=== PATIENT | female | born 1975 | race Caucasian/White ===

== ENCOUNTER → 2018-03-12 12:33 | Outpatient (CLI) | payer OTHER, SELFPAY ==
--- NOTE | 2018-03-12 | DI.MG.S_ITS ---
PROCEDURE: MM SCREENING MAMMO BI COMPARISON: [facility], , BREAST UNILATERAL LIMITED, 12/19/2015, 14:03. [facility], , BILATERAL SCREENING MAMMOGRAM, 12/31/2016, 10:38. INDICATIONS: ROUTINE MAMMO FINDINGS: IMPRESSION: Dictated by: Faustino De Souza M.D. on 03/12/2018 at 21:09 Approved by: Faustino De Souza M.D. on 03/12/2018 at 21:16
--- NOTE | 2018-03-12 21:16 | DI.MG.S_ITS ---
Patient Name: GET BRICEÑO date: 1975 Sex: F Attending Physician: Claritza Indications: Date: 03/12/2018 12:51 At the request of: MARIO ARDON Procedure: MM screening mammo BI BILATERAL DIGITAL SCREENING MAMMOGRAM 3D/2D WITH CAD: 03/12/2018 CLINICAL: Routine screening. Family history of breast cancer. Comparison is made to exams dated: 12/31/2016 mammogram, 12/19/2015 mammogram, 2015 mammogram, 12/28/2015 ultrasound biopsy, and 12/19/2015 [facility]. The tissue of both breasts is extremely dense, which lowers the sensitivity of mammography. Current study was also evaluated with a Computer Aided Detection (CAD) system. 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 There is an asymmetry in the left breast posterior depth inferior region seen on the mediolateral oblique view only. No other significant masses or calcifications are seen in either breast. IMPRESSION: INCOMPLETE: NEEDS ADDITIONAL IMAGING EVALUATION The asymmetry in the left breast posterior depth inferior region seen on the mediolateral oblique view only is indeterminate. Additional views with possible ultrasound are recommended. This exam was interpreted at Station ID: [id number]. NOTE: For mammograms, a report in lay terms will be sent to the patient. Approximately 15% of breast malignancies will not be visualized mammographically. In the management of a palpable breast mass, a negative mammogram must not discourage biopsy of a clinically suspicious lesion. Electronically Signed By: Faustino De Souza M.D. ecl/:03/12/2018 21:16:27 Continued Report - Page 2 of 2 Patient Name: GET BRICEÑO date: 1975 Sex: F Attending Physician: Claritza Indications: Date: 03/12/2018 12:51 At the request of: MARIO ARDON Procedure: MM screening mammo BI copy to: Janet Lainez letter sent: Additional Imaging Needed ACR BI-RADS Category 0: Incomplete [id number]
== END ==
PROVIDERS: PCP Registered Nurse; Visit Provider Registered Nurse
DX: Z12.31 Encounter for screening mammogram for malignant neoplasm of breast (principal); Z80.3 Family history of malignant neoplasm of breast
CPT/HCPCS: 77063; 77067

== ENCOUNTER → 2018-03-24 13:48 | Outpatient (CLI) | payer OTHER, SELFPAY ==
--- NOTE | 2018-03-24 13:51 | DI.MG.S_ITS ---
UNILATERAL LEFT DIGITAL DIAGNOSTIC MAMMOGRAM 3D/2D WITH ADDITIONAL VIEWS: 03/24/2018 CLINICAL: Additional evaluation requested from prior study. Comparison is made to exams dated: 03/12/2018 mammogram, 12/31/2016 mammogram, and 12/19/2015 mammogram - [facility]. The tissue of the left breast is extremely dense, which lowers the sensitivity of mammography. Prior mammographic finding is no longer seen in the left breast. No significant masses, calcifications, or other findings are seen in the breast. IMPRESSION: INCOMPLETE: NEEDS ADDITIONAL IMAGING EVALUATION Questioned left breast finding resolves on further imaging. Recommend confirmation with ultrasound. This exam was interpreted at Station ID: [id number]. NOTE: For mammograms, a report in lay terms will be sent to the patient. Approximately 15% of breast malignancies will not be visualized mammographically. In the management of a palpable breast mass, a negative mammogram must not discourage biopsy of a clinically suspicious lesion. Electronically Signed By: Mario Gustafson M.D. cj/:03/24/2018 15:58:14 copy to: MARIO ARDON ACR BI-RADS Category 0: Incomplete [id number]
--- NOTE | 2018-03-24 13:51 | DI.US.S_ITS ---
ULTRASOUND OF LEFT BREAST: 03/24/2018 CLINICAL: Patient returns for additional imaging over a suspected mass in the left breast. Comparison is made to exams dated: 03/24/2018 mammogram, 03/12/2018 mammogram, and 12/31/2016 mammogram - [facility]. Color flow ultrasound of the left breast was performed. Mclean scale images of the real-time examination were reviewed. Prior mammographic finding is no longer seen left breast. IMPRESSION: NEGATIVE There is no sonographic evidence of malignancy. A 1 year screening mammogram is recommended. This exam was interpreted at Station ID: [id number]. Electronically Signed By: Mario [email or web address]:03/24/2018 16:34:13 copy to: MARIO ARDON letter sent: Normal Exam Ultrasound BI-RADS: 1 Negative
== END ==
PROVIDERS: PCP Registered Nurse; Visit Provider Obstetrics & Gynecology
DX: R92.8 Other abnormal and inconclusive findings on diagnostic imaging of breast (principal)
CPT/HCPCS: 76642; 77065; G0279

== ENCOUNTER → 2018-06-08 13:55 | Outpatient (CLI) | payer OTHER, SELFPAY ==
[2018-06-08 15:59] LABS: Free T4, Direct Thyroxine 0.66 ng/dL (0.78-2.19)
[2018-06-08 16:12] LABS: Thyroid Stimulating Hormone 2.41 uIU/mL (0.47-4.68)
[2018-06-11 16:16] LABS: Thyroid Peroxidase Antibodies < 1 IU/mL (< 9)
== END ==
PROVIDERS: Family Provider Registered Nurse; PCP Registered Nurse; Visit Provider Internal Medicine Endocrinology, Diabetes & Metabolism
DX: E03.9 Hypothyroidism, unspecified (principal); E22.1 Hyperprolactinemia
CPT/HCPCS: 36415; 84146; 84439; 84443; 86376

== ENCOUNTER → 2019-03-29 10:03 | Outpatient (CLI) | payer OTHER, SELFPAY ==
--- NOTE | 2019-03-29 | DI.RAD.S_ITS ---
PROCEDURE: XR LUMBAR SPINE 2-3V INDICATIONS: Left lower back pain TECHNIQUE: 3 views of the lumbar spine were acquired. COMPARISON: None. FINDINGS: Bones: 5 [id number]-[id number] vertebrae are present. There is normal bony alignment. No vertebral body compression fractures. No suspicious bony lesions. There is mild to moderate facet arthropathy, worst at the L4-L5 and L5-S1 levels. Soft tissues: Overlying bowel gas pattern is nonobstructive. No suspicious soft tissue calcifications. IMPRESSION: Mild to moderate facet arthropathy, worst at the L4-L5 and L5-S1 levels. Dictated by: Faustino De Souza M.D. on 03/29/2019 at 15:09 Approved by: Faustino De Souza M.D. on 03/29/2019 at 15:11
== END ==
PROVIDERS: PCP Registered Nurse; Visit Provider Chiropractor
DX: M47.816 Spondylosis without myelopathy or radiculopathy, lumbar region (principal); M47.817 Spondylosis without myelopathy or radiculopathy, lumbosacral region; M54.5 Low back pain
CPT/HCPCS: 72100

== ENCOUNTER → 2020-07-17 16:55 | Outpatient (CLI) | payer OTHER, SELFPAY ==
[2020-07-17 17:18] LABS: COVID19 -Nasal RAPID Negative (Negative)
== END ==
PROVIDERS: PCP Registered Nurse; Visit Provider Physician Assistant
DX: Z11.59 Encounter for screening for other viral diseases (principal)
CPT/HCPCS: 87635

== ENCOUNTER → 2020-07-19 13:37 | Outpatient (CLI) | payer OTHER, SELFPAY ==
--- NOTE | 2020-07-19 | DI.MG.S_ITS ---
BILATERAL DIGITAL SCREENING MAMMOGRAM 3D/2D WITH CAD: 07/19/2020 CLINICAL: Routine screening. Family history of breast cancer. Comparison is made to exams dated: 03/12/2018 mammogram, 12/31/2016 mammogram, and 12/19/2015 mammogram - [facility]. The tissue of both breasts is extremely dense, which lowers the sensitivity of mammography. Current study was also evaluated with a Computer Aided Detection (CAD) system. No significant masses, calcifications, or other findings are seen in either breast. There has been no significant interval change. IMPRESSION: NEGATIVE There is no mammographic evidence of malignancy. A 1 year screening mammogram is recommended. This exam was interpreted at Station ID: [id number]. NOTE: For mammograms, a report in lay terms will be sent to the patient. Approximately 15% of breast malignancies will not be visualized mammographically. In the management of a palpable breast mass, a negative mammogram must not discourage biopsy of a clinically suspicious lesion. Electronically Signed By: Moraima kan/alfredo:07/25/2020 13:34:36 copy to: MARIO ARDON letter sent: Normal Exam ACR BI-RADS Category 1: Negative [id number]
== END ==
PROVIDERS: PCP Registered Nurse; Referring Provider Obstetrics & Gynecology; Visit Provider Obstetrics & Gynecology
DX: Z12.31 Encounter for screening mammogram for malignant neoplasm of breast (principal); Z80.3 Family history of malignant neoplasm of breast
CPT/HCPCS: 77063; 77067

== ENCOUNTER → 2021-01-03 13:30 | Outpatient (CLI) | payer OTHER, SELFPAY ==
[2021-01-03 13:48] LABS: Add Manual Diff / Slide Review NO; Basophils Absolute Auto 100 /uL (0-100); Basophils Percent Auto 1.3 % (0-2); Eosinophils Absolute Auto 200 /uL (0-450); Eosinophils Percent Auto 3.5 % (2-4); Hematocrit 37.1 % (36-46); Hemoglobin 12.8 g/dL (12.0-16.0); Lymphocytes Absolute Auto 1700 /uL (1100-4500); Lymphocytes Percent Auto 27.1 % (25-40); Mean Corpuscular HGB Conc 34.4 % (30-36); Mean Corpuscular Hemoglobin 32.1 PG (26-34); Mean Corpuscular Volume 93.3 fL (80-100); Monocytes Absolute Auto 400 /uL (0-900); Monocytes Percent Auto 6.1 % (3-14); Neutrophils Absolute Auto 3800 /uL (1500-7000); Platelet Count 222 X10^3/uL (150-400); Red Blood Cell Count 3.98 X10^6/uL (4.0-5.2); Red Cell Distribution Width 13.4 % (11.6-14.8); White Blood Cell Count 6.1 X10^3/uL (4.5-11.0)
[2021-01-03 13:52] LABS: Appearance Urine UA CLEAR; Bilirubin Urine UA NEGATIVE (NEGATIVE); Color Urine UA YELLOW; Glucose Urine UA NEGATIVE (Negative); Ketones Urine UA NEGATIVE (NEGATIVE); Leukocyte Esterase Urine UA NEGATIVE (NEGATIVE); Nitrite Urine UA NEGATIVE (Negative); Occult Blood Urine UA 1+ (Negative); Protein Urine UA NEGATIVE (Negative); Specific Gravity Urine UA >=1.030 (1.000-1.035); Urobilinogen Urine UA 0.2 E.U./dL (0.2)
[2021-01-03 14:07] LABS: Alanine Aminotransferase 15 IU/L (<35); Albumin 4.4 g/dL (3.5-5.0); Albumin Globulin Ratio 1.5 (1.0-2.8); Alkaline Phosphatase 55 U/L (38-126); Aspartate Aminotransferase 30 IU/L (14-36); BUN Creatinine Ratio 23.6 (6-22); Bilirubin Total 0.4 mg/dL (0.2-1.3); Blood Urea Nitrogen 17 mg/dL (7-17); Calcium 9.3 mg/dL (8.4-10.2); Carbon Dioxide 26 mmol/L (22-32); Chloride 105 mmol/L (98-107); Estimated Glomerular Filt Rate > 60.0 mL/min (>60); Globulin 2.9 g/dL (1.7-4.1); Glucose 92 mg/dL (70-100); HEMOLYSIS < 15 (0-50); Sodium 139 mmol/L (137-145); Total Protein 7.3 g/dL (6.3-8.2)
[2021-01-03 14:11] LABS: WBC Urine None Seen (0-5/HPF)
[2021-01-03 15:10] LABS: RBC Urine 0-1/HPF (0-5/HPF); Squamous Epithelial Cell Urine 1-5 /HPF (0-5/HPF)
[2021-01-03 15:11] LABS: Bacteria Urine Moderate (10-30); Mucus Urine 2+ (Negative)
[2021-01-03 15:12] LABS: Culture Indicated Urine Cult Not Indicated
[2021-01-03 15:51] LABS: TSH w/ Reflex to FT4 2.63 uIU/mL (0.47-4.68)
== END ==
PROVIDERS: PCP Family Medicine; Referring Provider Family Medicine; Visit Provider Family Medicine
DX: D35.2 Benign neoplasm of pituitary gland (principal); S39.012A Strain of muscle, fascia and tendon of lower back, initial encounter
CPT/HCPCS: 36415; 80053; 81003; 81015; 84443; 85025

== ENCOUNTER → 2021-02-05 16:34 | Outpatient (CLI) | payer OTHER, SELFPAY ==
[2021-02-05 18:19] LABS: Cholesterol 174 mg/dL (140-199); HDL Cholesterol 66 mg/dL (40-60); LDL Cholesterol Calculated 101 mg/dL (<100); Triglycerides 34 mg/dL (35-150)
== END ==
PROVIDERS: Family Provider Family Medicine; PCP Family Medicine; Referring Provider Family Medicine; Visit Provider Family Medicine
DX: Z83.438 Family history of other disorder of lipoprotein metabolism and other lipidemia (principal)
CPT/HCPCS: 36415; 80061

== ENCOUNTER → 2021-02-23 15:06 | Outpatient (CLI) | payer OTHER, SELFPAY ==
[2021-02-23 15:38] LABS: Bilirubin Urine UA NEGATIVE (NEGATIVE); Color Urine UA YELLOW; Glucose Urine UA NEGATIVE (Negative); Ketones Urine UA NEGATIVE (NEGATIVE); Leukocyte Esterase Urine UA TRACE (NEGATIVE); Nitrite Urine UA NEGATIVE (Negative); Occult Blood Urine UA 3+ (Negative); Protein Urine UA TRACE (Negative); Specific Gravity Urine UA 1.025 (1.000-1.035); Urobilinogen Urine UA 0.2 E.U./dL (0.2)
[2021-02-23 15:50] LABS: Appearance Urine UA Slightly Cloudy
[2021-02-23 15:59] LABS: Amorphous Sediment Urine 1+; Bacteria Urine Few (2-10); Culture Indicated Urine Specimen Cultured; Mucus Urine 2+ (Negative); RBC Urine 1-5/HPF (0-5/HPF); Squamous Epithelial Cell Urine 1-5 /HPF (0-5/HPF); WBC Urine 5-10/HPF (0-5/HPF)
== END ==
PROVIDERS: Family Provider Family Medicine; PCP Family Medicine; Referring Provider Family Medicine; Visit Provider Family Medicine
DX: N39.0 Urinary tract infection, site not specified (principal)
CPT/HCPCS: 81001; 87086

== ENCOUNTER 2021-03-02 08:15 | Outpatient (RCR) | payer OTHER, SELFPAY ==
--- NOTE | 2021-01-18 16:41 | PT.OIE ---
Current Diagnoses Strain of muscle, fascia and tendon of lower back, initial encounter (01/18/21) Past Medical History (Last Updated 01/02/21 @ 16:24 by Jose Padilla DO) Endometrial polyp Exposure to COVID-19 virus Infertility Low back strain Otitis externa URI (upper respiratory infection) Past Surgical History Status post delivery (01/05/07) Visit Care Team Role Provider Type Jose Padilla DO Attending Provider Physician Family Provider Primary Care Provider Referring Provider Specialty: Family Practice Address: [address] [place] [address], [facility] Email: [email or web address] Initial Evaluation PT-OP-A Visit Information Start: 01/18/21 11:57 Freq: Status: Active Protocol: Document 01/18/21 11:58 HH (Rec: 01/18/21 12:54 [email or web address]) Out-Patient Physical Therapy Visit Information Visit Information Visit Type Initial Evaluation Visit Start Time 08:15 Visit Stop Time 09:00 Total Visit Minutes 45 Visit Number 1/60 Number of AUTOMOTIVE ASSEMBLER Visits 0 Evaluation Information Evaluation Date 01/18/21 PT-OP-B Current Condition Start: 01/18/21 11:57 Freq: Status: Active Protocol: Document 01/18/21 11:58 HH (Rec: 01/18/21 12:54 [email or web address]) Current Condition History of Current Condition Onset Date 2016 Current Complaints chronic L LBP History of Current Condition Dejah is a 45yo healthy and active female here for her L sided LBP since 2015. She stated she somehow twisted her back when she was extending her back and reaching up with her L arm while doing Mammogram. She also fainted at the site and she then has been having LBP since. She stated she has been doing hip flexor stretches which it helps to manage her pain. She tends to feel her pain by laying in prone, supine with legs extended and with stiffness in the morning. 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 Prior Treatments and Tests Pt was told by her chiropractor 3 years ago that she has a 60 degrees curvature at her lumbosacral area Her 2019 x-ray shows ' There is mild to moderate facet arthropathy, worst at the L4-L5 and L5-S1 levels. PT-OP-C Subjective Start: 01/18/21 11:57 Freq: Status: Active Protocol: Document 01/18/21 14:00 HH (Rec: 01/18/21 14:25 [email or web address]) Patient Questionnaires Oswestry Low Back Index Oswestry Score 10 Oswestry Impairment 1 to 19% Impaired (Score 1-19) OP-PT Pain Assessment Location LBP Pain Location Details L parapspinals Intensity 5 Scale Used Numeric (0 - 10) Description Aching,Dull Frequency Frequent Pain Aggravating Factors Position,Changing Position, Activity,Exercise Pain Alleviating Factors Inactivity,Position,Sitting PT-OP-F Manual Assessment Start: 01/18/21 11:57 Freq: Status: Active Protocol: Document 01/18/21 14:00 HH (Rec: 01/18/21 14:25 [email or web address]) Manual Assessments Soft Tissue Assessment Soft Tissue Mobility Assessment hypertoncity at L lumbar paraspinals (distal at L5-S1 region > proximal) hypertonicity at L SIJ region and gluteal med and zachary tendon. PT-OP-H Neuro Start: 01/18/21 11:57 Freq: Status: Active Protocol: Document 01/18/21 14:00 HH (Rec: 01/18/21 14:25 [email or web address]) Deep Tendon Reflex & Clonus Assessment Deep Tendon Reflex Bilateral Achilles Deep Tendon Reflex 2+ Normal Bilateral Patellar Deep Tendon Reflex 2+ Normal PT-OP-J Posture/Palpation/Skin Start: 01/18/21 11:57 Freq: Status: Active Protocol: Document 01/18/21 14:00 HH (Rec: 01/18/21 14:25 [email or web address]) Palpation Assessment Location L parapsinal Palpation Location lumbar parapsinals L, QL Palpation Findings Tenderness,Trigger Point Palpation Details muscle hypertrophy noted on L PT-OP-K Range of Motion Start: 01/18/21 11:57 Freq: Status: Active Protocol: Document 01/18/21 14:00 HH (Rec: 01/18/21 14:25 [email or web address]) Lumbar Spine Range of Motion Lumbar Spine Active Degrees Comments toe touch= hands on floor, L hip hike with L paraspinals hypertrophy, mild L scoliosis noted. SB to R= 23inches from floor, tightness noted at L lumbar region SB to L = 21 inches from floor , pressure pain on L lumbar region extension= shoulder over heels , pressure pain on lumbar region, angulation noted at L3 level Hip Goniometric Range of Motion Hip Right Active Hip ROM WFL Yes Straight Leg Raise 92 Comments hip ROM = WFL Left Active Hip ROM WFL Yes Testing Position Supine Straight Leg Raise 98 Comments hip ROM = WFL PT-OP-L Special Tests Start: 01/18/21 11:57 Freq: Status: Active Protocol: Document 01/18/21 14:00 (Rec: 01/18/21 14:25 [email or web address]) Special Tests Lumbar Spine Special Tests A-P Shearing Test Results -ve Slump Test Results -ve Straight Leg Raise Test Results -ve Prone Instability Test Test Results +VE B Comments pt reports pain reduced with hip extension PT-OP-M Strength Start: 01/18/21 11:57 Freq: Status: Active Protocol: Document 01/18/21 14:00 (Rec: 01/18/21 14:25 [email or web address]) Trunk Strength Trunk Manual Muscle Testing Testing Position Prone Core Stabilization flexion endurance test= >60 seconds Hip Strength Hip Manual Muscle Testing Right Flexion (L2) 5 Normal Extension (S1) 5 Normal Abduction 5 Normal Adduction 5 Normal Left Flexion (L2) 4+ Good+ Extension (S1) 4+ Good+ Abduction 4+ Good+ Adduction 4+ Good+ Knee Strength Knee Manual Muscle Testing Right Flexion (S2) 5 Normal Extension (L3) 5 Normal Left Flexion (S2) 5 Normal Extension (L3) 5 Normal PT-OP-T Assessment and Plan Start: 01/18/21 11:57 Freq: Status: Active Protocol: Document 01/18/21 14:00 (Rec: 01/18/21 14:25 [email or web address]) Physical Therapy Assessment Rehab Potential Rehabilitation Potential Excellent Evaluation Complexity Number of Personal Factors/Comorbidities 0 Number of Body Systems Impaired 1-2 Clinical Presentation at Evaluation Stable Impairments Impairments Activity Tolerance,Balance, Functional Activities, Functional Mobility,Gait,Pain, Posture,ROM,Soft Tissue Mobility,Strength,Transfers Goals hep Impairment pt does not have HEP Short Term Goal (STG) pt will be compliant to HEP and able to complete them safely and correctly STG Duration 4 weeks activity tolerance Impairment pt is scared to run d/t back pain Short Term Goal (STG) pt will be able to run 1-3 miles per week without increase in back pain STG Duration 4 weeks Senior Living Goal (LTG) pt will be able to run 3-5 miles per week without back discomfort. LTG Duration 8 weeks Pain Impairment pt reports of pain while standing/ lying in supine/ prone Short Term Goal (STG) pt will have pain no more than 4/10 while standing or in prone position STG Duration 4 weeks Senior Living Goal (LTG) pt will have pain no more than 2/10 while doing her planks and push ups LTG Duration 8 weeks Assessment Summary Assessment Dejah is a 45yo active and healthy female here for her chronic L sided LBP. Pt reports she injured her back from lumbar extension with rotation in 2016. Upon assessment, pt presents possible lumbar strain. She has significant hypertrophy and tightness at L QL and paraspinals which is possibly d/t her poor lumbar stabilizers and her mild scoliosis. This creates excessive mechanical stress on her lumbar spine while laying in prone and any trunk extension exercises. Her exercises mechanics and hip flexor flexiblity and trunk extension strength/ endurance will be assessed next visit. Pt will benefit from skilled therapy to improve her overall trunk extension stability and strength of L hip stabilizers in order for her to continue doing her workout routine in pain free. Physical Therapy Plan Frequency and Duration Frequency of Treatment 1x/Week Duration of Treatment 8 weeks Plan of Care Start Date 01/18/21 Plan of Care End Date 03/19/21 Therapeutic Interventions Therapeutic Interventions Aquatic Therapy,Balance Training,Gait Training,Home Exercise Program,Joint Mobilizations,Manual Therapy, Neuromuscular Re-education, Patient/Caregiver Education, Self-Care/Home Management,Soft Tissue Mobilization,Taping, Therapeutic Activities, Therapeutic Exercises Modalities Biofeedback,Cold Pack/Ice Massage,Electric Stimulation, Hot Packs,Traction- Mechanical ,Ultrasound Next Visit Focus/Plan Next Note Type Treatment Note Next Visit Plan check plank extension endurance test sTM on L QL, glute med, glute max
--- NOTE | 2021-01-18 16:41 | PT.OPPOC ---
Physical, Occupational & Speech Therapy At [facility] Current Diagnoses Strain of muscle, fascia and tendon of lower back, initial encounter (01/18/21) Visit Care Team Role Provider Type Jose Padilla DO Attending Provider Physician Family Provider Primary Care Provider Referring Provider Specialty: Family Practice Address: [address] [place] [address], [facility] Email: [email or web address] Of Care PT-OP-T Assessment and Plan Start: 01/18/21 11:57 Freq: Status: Active Protocol: Document 01/18/21 14:00 (Rec: 01/18/21 14:25 HH [email or web address]) Physical Therapy Assessment Rehab Potential Rehabilitation Potential Excellent Evaluation Complexity Number of Personal Factors/Comorbidities 0 Number of Body Systems Impaired 1-2 Clinical Presentation at Evaluation Stable Impairments Impairments Activity Tolerance,Balance, Functional Activities, Functional Mobility,Gait,Pain, Posture,ROM,Soft Tissue Mobility,Strength,Transfers Goals hep Impairment pt does not have HEP Short Term Goal (STG) pt will be compliant to HEP and able to complete them safely and correctly STG Duration 4 weeks activity tolerance Impairment pt is scared to run d/t back pain Short Term Goal (STG) pt will be able to run 1-3 miles per week without increase in back pain STG Duration 4 weeks Maintenance Service Dispatcher Goal (LTG) pt will be able to run 3-5 miles per week without back discomfort. LTG Duration 8 weeks Pain Impairment pt reports of pain while standing/ lying in supine/ prone Short Term Goal (STG) pt will have pain no more than 4/10 while standing or in prone position STG Duration 4 weeks Intermediate Goal (LTG) pt will have pain no more than 2/10 while doing her planks and push ups LTG Duration 8 weeks Assessment Summary Assessment Dejah is a 45yo active and healthy female here for her chronic L sided LBP. Pt reports she injured her back from lumbar extension with rotation in 2016. Upon assessment, pt presents possible lumbar strain. She has significant hypertrophy and tightness at L QL and paraspinals which is possibly d/t her poor lumbar stabilizers and her mild scoliosis. This creates excessive mechanical stress on her lumbar spine while laying in prone and any trunk extension exercises. Her exercises mechanics and hip flexor flexiblity and trunk extension strength/ endurance will be assessed next visit. Pt will benefit from skilled therapy to improve her overall trunk extension stability and strength of L hip stabilizers in order for her to continue doing her workout routine in pain free. Physical Therapy Plan Frequency and Duration Frequency of Treatment 1x/Week Duration of Treatment 8 weeks Plan of Care Start Date 01/18/21 Plan of Care End Date 03/19/21 Therapeutic Interventions Therapeutic Interventions Aquatic Therapy,Balance Training,Gait Training,Home Exercise Program,Joint Mobilizations,Manual Therapy, Neuromuscular Re-education, Patient/Caregiver Education, Self-Care/Home Management,Soft Tissue Mobilization,Taping, Therapeutic Activities, Therapeutic Exercises Modalities Biofeedback,Cold Pack/Ice Massage,Electric Stimulation, Hot Packs,Traction- Mechanical ,Ultrasound Next Visit Focus/Plan Next Note Type Treatment Note Next Visit Plan check plank extension endurance test sTM on L QL, glute med, glute max Plan of Care Dates Plan of Care Start Date 01/18/21 Plan of Care End Date 03/19/21 Electronically Signed by: Aleshia Oseguera, PT 01/18/21 [id number] Please Sign and Return: I have reviewed this Plan of Care and certify that the skilled therapy services above are required to meet the patient?s needs. Physician Signature Date Printed Name and Credentials Clinical Instructor Signature Printed Name and Credentials
--- NOTE | 2021-01-19 09:10 | PT.OTN ---
Current Diagnoses Strain of muscle, fascia and tendon of lower back, initial encounter (01/19/21) Physical Therapy Treatment Note PT-OP-A Visit Information Start: 01/18/21 11:57 Freq: Status: Active Protocol: Document 01/19/21 08:17 HH (Rec: 01/19/21 09:10 [id number]) Out-Patient Physical Therapy Visit Information Visit Information Visit Type Treatment Note Visit Start Time 08:17 Visit Stop Time 09:00 Total Visit Minutes 43 Visit Number 2/60 Number of EQUIPMENT MECHANIC Visits 0 PT-OP-B Current Condition Start: 01/18/21 11:57 Freq: Status: Active Protocol: Document 01/18/21 11:58 HH (Rec: 01/18/21 12:54 HH [email or web address]) Current Condition History of Current Condition Onset Date 2015 Current Complaints chronic L LBP History of Current Condition Dejah is a 45yo healthy and active female here for her L sided LBP since 2015. She stated she somehow twisted her back when she was extending her back and reaching up with her L arm while doing Mammogram. She also fainted at the site and she then has been having LBP since. She stated she has been doing hip flexor stretches which it helps to manage her pain. She tends to feel her pain by laying in prone, supine with legs extended and with stiffness in the morning. 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 Prior Treatments and Tests Pt was told by her chiropractor 3 years ago that she has a 60 degrees curvature at her lumbosacral area Her 2019 x-ray shows ' There is mild to moderate facet arthropathy, worst at the L4-L5 and L5-S1 levels. PT-OP-C Subjective Start: 01/18/21 11:57 Freq: Status: Active Protocol: Document 01/19/21 08:17 HH (Rec: 01/19/21 09:10 [id number]) OP-PT Subjective Patient Comments Patient Comments my back did get sore after yesterday because laying on my stomach PT-OP-F Manual Assessment Start: 01/18/21 11:57 Freq: Status: Active Protocol: Document 01/18/21 14:00 HH (Rec: 01/18/21 14:25 HH [email or web address]) Manual Assessments Soft Tissue Assessment Soft Tissue Mobility Assessment hypertoncity at L lumbar paraspinals (distal at L5-S1 region > proximal) hypertonicity at L SIJ region and gluteal med and zachary tendon. PT-OP-H Neuro Start: 01/18/21 11:57 Freq: Status: Active Protocol: Document 01/18/21 14:00 HH (Rec: 01/18/21 14:25 [email or web address]) Deep Tendon Reflex & Clonus Assessment Deep Tendon Reflex Bilateral Achilles Deep Tendon Reflex 2+ Normal Bilateral Patellar Deep Tendon Reflex 2+ Normal PT-OP-J Posture/Palpation/Skin Start: 01/18/21 11:57 Freq: Status: Active Protocol: Document 01/18/21 14:00 HH (Rec: 01/18/21 14:25 [email or web address]) Palpation Assessment Location L parapsinal Palpation Location lumbar parapsinals L, QL Palpation Findings Tenderness,Trigger Point Palpation Details muscle hypertrophy noted on L PT-OP-K Range of Motion Start: 01/18/21 11:57 Freq: Status: Active Protocol: Document 01/18/21 14:00 HH (Rec: 01/18/21 14:25 [email or web address]) Lumbar Spine Range of Motion Lumbar Spine Active Degrees Comments toe touch= hands on floor, L hip hike with L paraspinals hypertrophy, mild L scoliosis noted. SB to R= 23inches from floor, tightness noted at L lumbar region SB to L = 21 inches from floor , pressure pain on L lumbar region extension= shoulder over heels , pressure pain on lumbar region, angulation noted at L3 level Hip Goniometric Range of Motion Hip Right Active Hip ROM WFL Yes Straight Leg Raise 92 Comments hip ROM = WFL Left Active Hip ROM WFL Yes Testing Position Supine Straight Leg Raise 98 Comments hip ROM = WFL PT-OP-L Special Tests Start: 01/18/21 11:57 Freq: Status: Active Protocol: Document 01/18/21 14:00 (Rec: 01/18/21 14:25 [email or web address]) Special Tests Lumbar Spine Special Tests A-P Shearing Test Results -ve Slump Test Results -ve Straight Leg Raise Test Results -ve Prone Instability Test Test Results +VE B Comments pt reports pain reduced with hip extension PT-OP-M Strength Start: 01/18/21 11:57 Freq: Status: Active Protocol: Document 01/18/21 14:00 HH (Rec: 01/18/21 14:25 [email or web address]) Trunk Strength Trunk Manual Muscle Testing Testing Position Prone Core Stabilization flexion endurance test= >60 seconds Hip Strength Hip Manual Muscle Testing Right Flexion (L2) 5 Normal Extension (S1) 5 Normal Abduction 5 Normal Adduction 5 Normal Left Flexion (L2) 4+ Good+ Extension (S1) 4+ Good+ Abduction 4+ Good+ Adduction 4+ Good+ Knee Strength Knee Manual Muscle Testing Right Flexion (S2) 5 Normal Extension (L3) 5 Normal Left Flexion (S2) 5 Normal Extension (L3) 5 Normal PT-OP-Q Treatments Start: 01/18/21 11:57 Freq: Status: Active Protocol: Document 01/19/21 08:17 (Rec: 01/19/21 09:10 [id number]) Therapeutic Exercises Supine Exercises pelvic tilt Reps/Minutes 15 x2 Comments APT to PPT SLR Reps/Minutes 10 x2 Comments cues on PPT first bridging Equipment Used red band on knees Reps/Minutes 10 x2 Comments cues on PPT first Prone Exercises cat camel Reps/Minutes 15x1 Comments cues with cervical flexion and extnesion Manual Therapy Treatment Soft Tissue Mobilization glutes Mobilization Type Myofascial Release,Sustained Pressure,Trigger Point Release Intensity/Depth Moderate Body Position Prone Comments and TFL, glute med QL Body Location L QL Mobilization Type Myofascial Release,Sustained Pressure,Trigger Point Release Intensity/Depth Moderate Body Position Prone PT-OP-T Assessment and Plan Start: 01/18/21 11:57 Freq: Status: Active Protocol: Document 01/19/21 08:17 (Rec: 01/19/21 09:10 [id number]) Physical Therapy Assessment Goals hep Impairment pt does not have HEP Short Term Goal (STG) pt will be compliant to HEP and able to complete them safely and correctly STG Duration 4 weeks activity tolerance Impairment pt is scared to run d/t back pain Short Term Goal (STG) pt will be able to run 1-3 miles per week without increase in back pain STG Duration 4 weeks Financial Investment Manager Goal (LTG) pt will be able to run 3-5 miles per week without back discomfort. LTG Duration 8 weeks Pain Impairment pt reports of pain while standing/ lying in supine/ prone Short Term Goal (STG) pt will have pain no more than 4/10 while standing or in prone position STG Duration 4 weeks Senior Care Goal (LTG) pt will have pain no more than 2/10 while doing her planks and push ups LTG Duration 8 weeks Assessment Summary Assessment This session focused on manual therapy at L QL and glute med for relaxation followed by intiation of core and hip stabilization ex. Pt does have some discomfort during lumbar movement from flexion to extension. Physical Therapy Plan Frequency and Duration Frequency of Treatment 1x/Week Duration of Treatment 8 weeks Plan of Care Start Date 01/18/21 Plan of Care End Date 03/19/21 Therapeutic Interventions Therapeutic Interventions Aquatic Therapy,Balance Training,Gait Training,Home Exercise Program,Joint Mobilizations,Manual Therapy, Neuromuscular Re-education, Patient/Caregiver Education, Self-Care/Home Management,Soft Tissue Mobilization,Taping, Therapeutic Activities, Therapeutic Exercises Modalities Biofeedback,Cold Pack/Ice Massage,Electric Stimulation, Hot Packs,Traction- Mechanical ,Ultrasound Next Visit Focus/Plan Next Note Type Treatment Note Next Visit Plan check plank extension endurance test sTM on L QL, glute med, glute max
--- NOTE | 2021-01-29 13:00 | PT.OTN ---
Current Diagnoses Strain of muscle, fascia and tendon of lower back, initial encounter (01/29/21) Physical Therapy Treatment Note PT-OP-A Visit Information Start: 01/18/21 11:57 Freq: Status: Active Protocol: Document 01/29/21 12:17 SP (Rec: 01/29/21 16:23 SP [id number]) Out-Patient Physical Therapy Visit Information Visit Information Visit Type Treatment Note Visit Start Time 12:17 Visit Stop Time 13:00 Total Visit Minutes 43 Visit Number 3/60 Number of IRRIGATION TAX ASSESSOR COLLECTOR Visits 1 Evaluation Information Evaluation Date 01/18/21 PT-OP-B Current Condition Start: 01/18/21 11:57 Freq: Status: Active Protocol: Document 01/18/21 11:58 HH (Rec: 01/18/21 12:54 HH [email or web address]) Current Condition History of Current Condition Onset Date 2015 Current Complaints chronic L LBP History of Current Condition Dejah is a 45yo healthy and active female here for her L sided LBP since 2015. She stated she somehow twisted her back when she was extending her back and reaching up with her L arm while doing Mammogram. She also fainted at the site and she then has been having LBP since. She stated she has been doing hip flexor stretches which it helps to manage her pain. She tends to feel her pain by laying in prone, supine with legs extended and with stiffness in the morning. 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 Prior Treatments and Tests Pt was told by her chiropractor 3 years ago that she has a 60 degrees curvature at her lumbosacral area Her 2019 x-ray shows ' There is mild to moderate facet arthropathy, worst at the L4-L5 and L5-S1 levels. PT-OP-C Subjective Start: 01/18/21 11:57 Freq: Status: Active Protocol: Document 01/29/21 12:17 SP (Rec: 01/29/21 16:23 SP [id number]) OP-PT Subjective Patient Comments Patient Comments I was driving over the weekend and not the favorite thing for the back, compliant with exercises at home as well . PT-OP-F Manual Assessment Start: 01/18/21 11:57 Freq: Status: Active Protocol: Document 01/18/21 14:00 HH (Rec: 01/18/21 14:25 HH [email or web address]) Manual Assessments Soft Tissue Assessment Soft Tissue Mobility Assessment hypertoncity at L lumbar paraspinals (distal at L5-S1 region > proximal) hypertonicity at L SIJ region and gluteal med and zachary tendon. PT-OP-H Neuro Start: 01/18/21 11:57 Freq: Status: Active Protocol: Document 01/18/21 14:00 HH (Rec: 01/18/21 14:25 [email or web address]) Deep Tendon Reflex & Clonus Assessment Deep Tendon Reflex Bilateral Achilles Deep Tendon Reflex 2+ Normal Bilateral Patellar Deep Tendon Reflex 2+ Normal PT-OP-J Posture/Palpation/Skin Start: 01/18/21 11:57 Freq: Status: Active Protocol: Document 01/18/21 14:00 (Rec: 01/18/21 14:25 [email or web address]) Palpation Assessment Location L parapsinal Palpation Location lumbar parapsinals L, QL Palpation Findings Tenderness,Trigger Point Palpation Details muscle hypertrophy noted on L PT-OP-K Range of Motion Start: 01/18/21 11:57 Freq: Status: Active Protocol: Document 01/18/21 14:00 HH (Rec: 01/18/21 14:25 [email or web address]) Lumbar Spine Range of Motion Lumbar Spine Active Degrees Comments toe touch= hands on floor, L hip hike with L paraspinals hypertrophy, mild L scoliosis noted. SB to R= 23inches from floor, tightness noted at L lumbar region SB to L = 21 inches from floor , pressure pain on L lumbar region extension= shoulder over heels , pressure pain on lumbar region, angulation noted at L3 level Hip Goniometric Range of Motion Hip Right Active Hip ROM WFL Yes Straight Leg Raise 92 Comments hip ROM = WFL Left Active Hip ROM WFL Yes Testing Position Supine Straight Leg Raise 98 Comments hip ROM = WFL PT-OP-L Special Tests Start: 01/18/21 11:57 Freq: Status: Active Protocol: Document 01/18/21 14:00 (Rec: 01/18/21 14:25 [email or web address]) Special Tests Lumbar Spine Special Tests A-P Shearing Test Results -ve Slump Test Results -ve Straight Leg Raise Test Results -ve Prone Instability Test Test Results +VE B Comments pt reports pain reduced with hip extension PT-OP-M Strength Start: 01/18/21 11:57 Freq: Status: Active Protocol: Document 01/18/21 14:00 HH (Rec: 01/18/21 14:25 HH [email or web address]) Trunk Strength Trunk Manual Muscle Testing Testing Position Prone Core Stabilization flexion endurance test= >60 seconds Hip Strength Hip Manual Muscle Testing Right Flexion (L2) 5 Normal Extension (S1) 5 Normal Abduction 5 Normal Adduction 5 Normal Left Flexion (L2) 4+ Good+ Extension (S1) 4+ Good+ Abduction 4+ Good+ Adduction 4+ Good+ Knee Strength Knee Manual Muscle Testing Right Flexion (S2) 5 Normal Extension (L3) 5 Normal Left Flexion (S2) 5 Normal Extension (L3) 5 Normal PT-OP-Q Treatments Start: 01/18/21 11:57 Freq: Status: Active Protocol: Document 01/29/21 12:17 SP (Rec: 01/29/21 16:23 SP [id number]) Therapeutic Exercises Supine Exercises LTR Supine Exercise Name added to HEP Side bilateral Equipment Used over 65 cm tball Reps/Minutes x10 Gabriel stretch Supine Exercise Name too easy so performed in 1/2 kneel with better effective feedback Side left Comments cued TA pelvic tilt Supine Exercise Name review Reps/Minutes x15 Comments APT to PPT> neutral pelvis prep bridge SLR Supine Exercise Name little shaky on L- weakness Side bilateral Reps/Minutes 10 x2 Comments cues on PPT first bridging Equipment Used red band> GTB at knees (same at home) Reps/Minutes 10 x2 Comments good neutral pelvis 1st, then lift with glut/ hip abd fac- good form Prone Exercises hip ext/ abd over tball Resistance R TB Equipment Used 65cm Tball Reps/Minutes x10 Comments cued TA, hip ext/abd lift for glut and multifidi fac- good response plank Prone Exercise Name off knees better TA stable- comfort, off feet causes popping L2 region Reps/Minutes 30 sec off knees Comments 15 sec off feet then upper lumbar pain/ popping- cued PPT , TA netu Sitting Exercises core recline pull down Sitting Exercise Name back to wall (good core quivering facilitation- pain free) Resistance TB #1 Equipment Used 65cm tball Reps/Minutes x10 Comments cued chest lift, reclined, neutral pelvis, arms straight pull down Standing Exercises self STMs Standing Exercise Name ES, Glut/PF Equipment Used [employer] at wall and home does on floor Other Exercises 1/ 2 kneel Other Exercise Name quad and psoas stretch w/ reach OH Side bilateral Reps/Minutes 60 PT-OP-T Assessment and Plan Start: 01/18/21 11:57 Freq: Status: Active Protocol: Document 01/29/21 12:17 SP (Rec: 01/29/21 16:23 SP [id number]) Physical Therapy Assessment Goals hep Impairment pt does not have HEP Short Term Goal (STG) pt will be compliant to HEP and able to complete them safely and correctly STG Duration 4 weeks activity tolerance Impairment pt is scared to run d/t back pain Short Term Goal (STG) pt will be able to run 1-3 miles per week without increase in back pain STG Duration 4 weeks Network Control Operators Supervisor Goal (LTG) pt will be able to run 3-5 miles per week without back discomfort. LTG Duration 8 weeks Pain Impairment pt reports of pain while standing/ lying in supine/ prone Short Term Goal (STG) pt will have pain no more than 4/10 while standing or in prone position STG Duration 4 weeks Network Control Operators Supervisor Goal (LTG) pt will have pain no more than 2/10 while doing her planks and push ups LTG Duration 8 weeks Assessment Summary Assessment Tx focused on self STMs to glut, piriformis at wall, ther ex core/ hip abd/ glut facilitation with good response and pain free with cuing for PPT awareness. Pt unable to tolerate plank off feet, good improvement in multifidus facilition off knees and initiation prone tball with hip ext/ abd lifts. Physical Therapy Plan Frequency and Duration Frequency of Treatment 1x/Week Duration of Treatment 8 weeks Plan of Care Start Date 01/18/21 Plan of Care End Date 03/19/21 Therapeutic Interventions Therapeutic Interventions Aquatic Therapy,Balance Training,Gait Training,Home Exercise Program,Joint Mobilizations,Manual Therapy, Neuromuscular Re-education, Patient/Caregiver Education, Self-Care/Home Management,Soft Tissue Mobilization,Taping, Therapeutic Activities, Therapeutic Exercises Modalities Biofeedback,Cold Pack/Ice Massage,Electric Stimulation, Hot Packs,Traction- Mechanical ,Ultrasound Next Visit Focus/Plan Next Note Type Treatment Note Next Visit Plan Assess reponse to new HEP: POC: check plank extension endurance test ( plank endurance with proper form) sTM on L QL, glute med, glute max
--- NOTE | 2021-02-01 09:03 | PT.OTN ---
Current Diagnoses Strain of muscle, fascia and tendon of lower back, initial encounter (02/01/21) Physical Therapy Treatment Note PT-OP-A Visit Information Start: 01/18/21 11:57 Freq: Status: Active Protocol: Document 02/01/21 08:23 SP (Rec: 02/01/21 09:05 SP [id number]) Out-Patient Physical Therapy Visit Information Visit Information Visit Type Treatment Note Visit Start Time 08:22 Visit Stop Time 09:03 Total Visit Minutes 41 Visit Number 4/60 Number of FURNACE COMBUSTION TESTER Visits 2 Evaluation Information Evaluation Date 01/18/21 PT-OP-B Current Condition Start: 01/18/21 11:57 Freq: Status: Active Protocol: Document 01/18/21 11:58 HH (Rec: 01/18/21 12:54 HH [email or web address]) Current Condition History of Current Condition Onset Date 2015 Current Complaints chronic L LBP History of Current Condition Dejah is a 45yo healthy and active female here for her L sided LBP since 2015. She stated she somehow twisted her back when she was extending her back and reaching up with her L arm while doing Mammogram. She also fainted at the site and she then has been having LBP since. She stated she has been doing hip flexor stretches which it helps to manage her pain. She tends to feel her pain by laying in prone, supine with legs extended and with stiffness in the morning. 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 Prior Treatments and Tests Pt was told by her chiropractor 3 years ago that she has a 60 degrees curvature at her lumbosacral area Her 2019 x-ray shows ' There is mild to moderate facet arthropathy, worst at the L4-L5 and L5-S1 levels. PT-OP-C Subjective Start: 01/18/21 11:57 Freq: Status: Active Protocol: Document 02/01/21 08:23 SP (Rec: 02/01/21 09:05 SP [id number]) OP-PT Subjective Patient Comments Patient Comments Pt stated little sore after last tx but was alot better next day. Pt stated keeping up with the exercises 4days/ wk but wasn't able to do tball exercises haven't had the time . Pt stated still gets the pain in sitting straight upright or standing locked out postion. PT-OP-F Manual Assessment Start: 01/18/21 11:57 Freq: Status: Active Protocol: Document 01/18/21 14:00 HH (Rec: 01/18/21 14:25 [email or web address]) Manual Assessments Soft Tissue Assessment Soft Tissue Mobility Assessment hypertoncity at L lumbar paraspinals (distal at L5-S1 region > proximal) hypertonicity at L SIJ region and gluteal med and zachary tendon. PT-OP-H Neuro Start: 01/18/21 11:57 Freq: Status: Active Protocol: Document 01/18/21 14:00 HH (Rec: 01/18/21 14:25 [email or web address]) Deep Tendon Reflex & Clonus Assessment Deep Tendon Reflex Bilateral Achilles Deep Tendon Reflex 2+ Normal Bilateral Patellar Deep Tendon Reflex 2+ Normal PT-OP-J Posture/Palpation/Skin Start: 01/18/21 11:57 Freq: Status: Active Protocol: Document 01/18/21 14:00 HH (Rec: 01/18/21 14:25 [email or web address]) Palpation Assessment Location L parapsinal Palpation Location lumbar parapsinals L, QL Palpation Findings Tenderness,Trigger Point Palpation Details muscle hypertrophy noted on L PT-OP-K Range of Motion Start: 01/18/21 11:57 Freq: Status: Active Protocol: Document 01/18/21 14:00 HH (Rec: 01/18/21 14:25 [email or web address]) Lumbar Spine Range of Motion Lumbar Spine Active Degrees Comments toe touch= hands on floor, L hip hike with L paraspinals hypertrophy, mild L scoliosis noted. SB to R= 23inches from floor, tightness noted at L lumbar region SB to L = 21 inches from floor , pressure pain on L lumbar region extension= shoulder over heels , pressure pain on lumbar region, angulation noted at L3 level Hip Goniometric Range of Motion Hip Right Active Hip ROM WFL Yes Straight Leg Raise 92 Comments hip ROM = WFL Left Active Hip ROM WFL Yes Testing Position Supine Straight Leg Raise 98 Comments hip ROM = WFL PT-OP-L Special Tests Start: 01/18/21 11:57 Freq: Status: Active Protocol: Document 01/18/21 14:00 HH (Rec: 01/18/21 14:25 [email or web address]) Special Tests Lumbar Spine Special Tests A-P Shearing Test Results -ve Slump Test Results -ve Straight Leg Raise Test Results -ve Prone Instability Test Test Results +VE B Comments pt reports pain reduced with hip extension PT-OP-M Strength Start: 01/18/21 11:57 Freq: Status: Active Protocol: Document 01/18/21 14:00 HH (Rec: 01/18/21 14:25 HH [email or web address]) Trunk Strength Trunk Manual Muscle Testing Testing Position Prone Core Stabilization flexion endurance test= >60 seconds Hip Strength Hip Manual Muscle Testing Right Flexion (L2) 5 Normal Extension (S1) 5 Normal Abduction 5 Normal Adduction 5 Normal Left Flexion (L2) 4+ Good+ Extension (S1) 4+ Good+ Abduction 4+ Good+ Adduction 4+ Good+ Knee Strength Knee Manual Muscle Testing Right Flexion (S2) 5 Normal Extension (L3) 5 Normal Left Flexion (S2) 5 Normal Extension (L3) 5 Normal PT-OP-Q Treatments Start: 01/18/21 11:57 Freq: Status: Active Protocol: Document 02/01/21 08:23 SP (Rec: 02/01/21 09:05 SP [id number]) Therapeutic Exercises Supine Exercises LTR Supine Exercise Name reviewed HEP Side bilateral Equipment Used over 65 cm tball Reps/Minutes 2x10 Comments good ROM release but challenges TA end range painfree Prone Exercises pigeon up and down Prone Exercise Name self HEP from pre PT has been helpful Side bilateral Reps/Minutes 30 x2 Comments good releases front/ post hips hip ext/ abd over tball Resistance R TB Equipment Used 65cm Tball Reps/Minutes 2 x10 Comments cued TA, hip ext/abd lift for glut and multifidi fac- good response plank Prone Exercise Name off knees better TA stable- comfort, off feet causes popping L2 region Reps/Minutes 60 sec off knees tested- painfree Comments 35 sec off feet but feels upper lumbar popping x3- cued PPT, TA neutral Sitting Exercises core recline pull down Sitting Exercise Name back to wall (good core quivering facilitation- pain free) Resistance TB #1 Equipment Used 65cm tball Reps/Minutes x10 Comments cued chest lift, reclined, neutral pelvis, arms straight pull down Standing Exercises self STMs Standing Exercise Name Glut/PF at wall, RTFL prone floor Equipment Used racquetball at wall and home does on floor/ wall Reps/Minutes 5 min Comments good feedback loosens muscles Other Exercises 1/ 2 kneel Other Exercise Name quad and psoas stretch w/ reach OH Side bilateral Reps/Minutes 60 Manual Therapy Treatment Soft Tissue Mobilization glutes Mobilization Type Myofascial Release,Sustained Pressure,Trigger Point Release Intensity/Depth Moderate Body Position Prone Comments and TFL, glute med QL Body Location L QL Mobilization Type Myofascial Release,Sustained Pressure,Trigger Point Release Intensity/Depth Moderate Body Position Prone PT-OP-T Assessment and Plan Start: 01/18/21 11:57 Freq: Status: Active Protocol: Document 02/01/21 08:23 SP (Rec: 02/01/21 09:05 SP [id number]) Physical Therapy Assessment Goals hep Impairment pt does not have HEP Short Term Goal (STG) pt will be compliant to HEP and able to complete them safely and correctly STG Duration 4 weeks activity tolerance Impairment pt is scared to run d/t back pain Short Term Goal (STG) pt will be able to run 1-3 miles per week without increase in back pain STG Duration 4 weeks Snf Goal (LTG) pt will be able to run 3-5 miles per week without back discomfort. LTG Duration 8 weeks Pain Impairment pt reports of pain while standing/ lying in supine/ prone Short Term Goal (STG) pt will have pain no more than 4/10 while standing or in prone position STG Duration 4 weeks Snf Goal (LTG) pt will have pain no more than 2/10 while doing her planks and push ups LTG Duration 8 weeks Assessment Summary Assessment Tx focus on manual and self stretching/ STMs for relief and core/ glut strengthening with good response. Still get popping during endurance trial of plank off knees but no pain, no popping off knees with good endurance. Responds well to core and glut strengthening HEP prone over ball and supine pull downs. Continue to assess popping and glut/pirformis pain next tx. Physical Therapy Plan Frequency and Duration Frequency of Treatment 1x/Week Duration of Treatment 8 weeks Plan of Care Start Date 01/18/21 Plan of Care End Date 03/19/21 Therapeutic Interventions Therapeutic Interventions Aquatic Therapy,Balance Training,Gait Training,Home Exercise Program,Joint Mobilizations,Manual Therapy, Neuromuscular Re-education, Patient/Caregiver Education, Self-Care/Home Management,Soft Tissue Mobilization,Taping, Therapeutic Activities, Therapeutic Exercises Modalities Biofeedback,Cold Pack/Ice Massage,Electric Stimulation, Hot Packs,Traction- Mechanical ,Ultrasound Next Visit Focus/Plan Next Note Type Treatment Note Next Visit Plan Assess reponse to new HEP see tx today and assessment for nex tx. POC: check plank extension endurance test ( plank endurance with proper form) sTM on L QL, glute med, glute max
--- NOTE | 2021-02-09 10:36 | PT.OTN ---
Current Diagnoses Strain of muscle, fascia and tendon of lower back, initial encounter (02/09/21) Physical Therapy Treatment Note PT-OP-A Visit Information Start: 01/18/21 11:57 Freq: Status: Active Protocol: Document 02/09/21 08:16 HH (Rec: 02/09/21 10:35 [id number]) Out-Patient Physical Therapy Visit Information Visit Information Visit Type Treatment Note Visit Start Time 08:16 Visit Stop Time 09:00 Total Visit Minutes 44 Visit Number 5/60 Number of ORTHOTIC AIDE Visits 0 PT-OP-B Current Condition Start: 01/18/21 11:57 Freq: Status: Active Protocol: Document 01/18/21 11:58 HH (Rec: 01/18/21 12:54 HH [email or web address]) Current Condition History of Current Condition Onset Date 2015 Current Complaints chronic L LBP History of Current Condition Dejah is a 45yo healthy and active female here for her L sided LBP since 2015. She stated she somehow twisted her back when she was extending her back and reaching up with her L arm while doing Mammogram. She also fainted at the site and she then has been having LBP since. She stated she has been doing hip flexor stretches which it helps to manage her pain. She tends to feel her pain by laying in prone, supine with legs extended and with stiffness in the morning. 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 Prior Treatments and Tests Pt was told by her chiropractor 3 years ago that she has a 60 degrees curvature at her lumbosacral area Her 2019 x-ray shows ' There is mild to moderate facet arthropathy, worst at the L4-L5 and L5-S1 levels. PT-OP-C Subjective Start: 01/18/21 11:57 Freq: Status: Active Protocol: Document 02/09/21 08:16 HH (Rec: 02/09/21 10:35 [id number]) OP-PT Subjective Patient Comments Patient Comments My L low back is still sore. the ab curl on therapy ball tends to aggravate my back like planking. Patient Reported Progress Same PT-OP-F Manual Assessment Start: 01/18/21 11:57 Freq: Status: Active Protocol: Document 01/18/21 14:00 HH (Rec: 01/18/21 14:25 HH [email or web address]) Manual Assessments Soft Tissue Assessment Soft Tissue Mobility Assessment hypertoncity at L lumbar paraspinals (distal at L5-S1 region > proximal) hypertonicity at L SIJ region and gluteal med and zachary tendon. PT-OP-H Neuro Start: 01/18/21 11:57 Freq: Status: Active Protocol: Document 01/18/21 14:00 HH (Rec: 01/18/21 14:25 [email or web address]) Deep Tendon Reflex & Clonus Assessment Deep Tendon Reflex Bilateral Achilles Deep Tendon Reflex 2+ Normal Bilateral Patellar Deep Tendon Reflex 2+ Normal PT-OP-J Posture/Palpation/Skin Start: 01/18/21 11:57 Freq: Status: Active Protocol: Document 01/18/21 14:00 (Rec: 01/18/21 14:25 [email or web address]) Palpation Assessment Location L parapsinal Palpation Location lumbar parapsinals L, QL Palpation Findings Tenderness,Trigger Point Palpation Details muscle hypertrophy noted on L PT-OP-K Range of Motion Start: 01/18/21 11:57 Freq: Status: Active Protocol: Document 01/18/21 14:00 HH (Rec: 01/18/21 14:25 [email or web address]) Lumbar Spine Range of Motion Lumbar Spine Active Degrees Comments toe touch= hands on floor, L hip hike with L paraspinals hypertrophy, mild L scoliosis noted. SB to R= 23inches from floor, tightness noted at L lumbar region SB to L = 21 inches from floor , pressure pain on L lumbar region extension= shoulder over heels , pressure pain on lumbar region, angulation noted at L3 level Hip Goniometric Range of Motion Hip Right Active Hip ROM WFL Yes Straight Leg Raise 92 Comments hip ROM = WFL Left Active Hip ROM WFL Yes Testing Position Supine Straight Leg Raise 98 Comments hip ROM = WFL PT-OP-L Special Tests Start: 01/18/21 11:57 Freq: Status: Active Protocol: Document 01/18/21 14:00 (Rec: 01/18/21 14:25 [email or web address]) Special Tests Lumbar Spine Special Tests A-P Shearing Test Results -ve Slump Test Results -ve Straight Leg Raise Test Results -ve Prone Instability Test Test Results +VE B Comments pt reports pain reduced with hip extension PT-OP-M Strength Start: 05/27/21 11:57 Freq: Status: Active Protocol: Document 01/18/21 14:00 HH (Rec: 01/18/21 14:25 HH [email or web address]) Trunk Strength Trunk Manual Muscle Testing Testing Position Prone Core Stabilization flexion endurance test= >60 seconds Hip Strength Hip Manual Muscle Testing Right Flexion (L2) 5 Normal Extension (S1) 5 Normal Abduction 5 Normal Adduction 5 Normal Left Flexion (L2) 4+ Good+ Extension (S1) 4+ Good+ Abduction 4+ Good+ Adduction 4+ Good+ Knee Strength Knee Manual Muscle Testing Right Flexion (S2) 5 Normal Extension (L3) 5 Normal Left Flexion (S2) 5 Normal Extension (L3) 5 Normal PT-OP-Q Treatments Start: 01/18/21 11:57 Freq: Status: Active Protocol: Document 02/09/21 08:16 HH (Rec: 02/09/21 10:35 [id number]) Therapeutic Exercises Supine Exercises reverse crunch Side bilateral Reps/Minutes 20 sec x 4 Comments for HEP, no discomfort crunch hold Side bilateral Reps/Minutes 20 sec x4 Comments for HEP, no discomfort pelvic tilt Supine Exercise Name review Reps/Minutes x15 Comments APT to PPT> neutral pelvis prep bridge bridging Equipment Used red band> GTB at knees (same at home) Reps/Minutes 10 x2 Comments good neutral pelvis 1st, then lift with glut/ hip abd fac- good form Prone Exercises hip extension Prone Exercise Name elbows on table Side bilateral Reps/Minutes 10 x2 Comments for HEP, no discomfort, cues on PPT Sidelying Exercises side plank Sidelying Exercise Name on side of knees Reps/Minutes 20 sec Comments for HEP, no discomfort open book Comments for HEP stretching Sitting Exercises core recline pull down Sitting Exercise Name back to wall (good core quivering facilitation- pain free) Resistance TB #1 Equipment Used 65cm tball Reps/Minutes x10 Comments cued chest lift, reclined, neutral pelvis, arms straight pull down Standing Exercises hip abd Reps/Minutes 10 x2 Comments for HEP, no discomfort, cues on PPT Manual Therapy Treatment Soft Tissue Mobilization glutes Mobilization Type Myofascial Release,Sustained Pressure,Trigger Point Release Intensity/Depth Moderate Body Position Prone Comments and TFL, glute med QL Body Location L QL Mobilization Type Myofascial Release,Sustained Pressure,Trigger Point Release Intensity/Depth Moderate Body Position Prone PT-OP-T Assessment and Plan Start: 01/18/21 11:57 Freq: Status: Active Protocol: Document 02/09/21 08:16 (Rec: 02/09/21 10:35 HH [id number]) Physical Therapy Assessment Goals hep Impairment pt does not have HEP Short Term Goal (STG) pt will be compliant to HEP and able to complete them safely and correctly STG Duration 4 weeks activity tolerance Impairment pt is scared to run d/t back pain Short Term Goal (STG) pt will be able to run 1-3 miles per week without increase in back pain STG Duration 4 weeks Usp Goal (LTG) pt will be able to run 3-5 miles per week without back discomfort. LTG Duration 8 weeks Pain Impairment pt reports of pain while standing/ lying in supine/ prone Short Term Goal (STG) pt will have pain no more than 4/10 while standing or in prone position STG Duration 4 weeks Usp Goal (LTG) pt will have pain no more than 2/10 while doing her planks and push ups LTG Duration 8 weeks Assessment Summary Assessment pt came in with continuous L sided back pain with extension activities. Spent time modifying all of her trunk stabilization ex. Noticed pt is able to tolerate isometric ab ex in neutral spine/ PPT. Educated her on ex progression by increasing the moment arm with LE movements. Physical Therapy Plan Frequency and Duration Frequency of Treatment 1x/Week Duration of Treatment 8 weeks Plan of Care Start Date 01/18/21 Plan of Care End Date 03/19/21 Therapeutic Interventions Therapeutic Interventions Aquatic Therapy,Balance Training,Gait Training,Home Exercise Program,Joint Mobilizations,Manual Therapy, Neuromuscular Re-education, Patient/Caregiver Education, Self-Care/Home Management,Soft Tissue Mobilization,Taping, Therapeutic Activities, Therapeutic Exercises Modalities Biofeedback,Cold Pack/Ice Massage,Electric Stimulation, Hot Packs,Traction- Mechanical ,Ultrasound Next Visit Focus/Plan Next Note Type Treatment Note Next Visit Plan Assess reponse to new HEP see tx today and assessment for nex tx. POC: check plank extension endurance test ( plank endurance with proper form) sTM on L QL, glute med, glute max
--- NOTE | 2021-03-02 09:52 | PT.OTN ---
Current Diagnoses Strain of muscle, fascia and tendon of lower back, initial encounter (03/02/21) Physical Therapy Treatment Note PT-OP-A Visit Information Start: 01/18/21 11:57 Freq: Status: Active Protocol: Document 03/02/21 08:15 HH (Rec: 03/02/21 09:04 [id number]) Out-Patient Physical Therapy Visit Information Visit Information Visit Type Treatment Note Visit Start Time 08:17 Visit Stop Time 09:00 Total Visit Minutes 43 Visit Number 660 Number of DESIGN SPECIALIST Visits 0 PT-OP-B Current Condition Start: 01/18/21 11:57 Freq: Status: Active Protocol: Document 01/18/21 11:58 HH (Rec: 01/18/21 12:54 HH [email or web address]) Current Condition History of Current Condition Onset Date 2015 Current Complaints chronic L LBP History of Current Condition Dejah is a 45yo healthy and active female here for her L sided LBP since 2015. She stated she somehow twisted her back when she was extending her back and reaching up with her L arm while doing Mammogram. She also fainted at the site and she then has been having LBP since. She stated she has been doing hip flexor stretches which it helps to manage her pain. She tends to feel her pain by laying in prone, supine with legs extended and with stiffness in the morning. 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 Prior Treatments and Tests Pt was told by her chiropractor 3 years ago that she has a 60 degrees curvature at her lumbosacral area Her 2019 x-ray shows ' There is mild to moderate facet arthropathy, worst at the L4-L5 and L5-S1 levels. PT-OP-C Subjective Start: 01/18/21 11:57 Freq: Status: Active Protocol: Document 03/02/21 08:15 HH (Rec: 03/02/21 09:04 [id number]) OP-PT Subjective Patient Comments Patient Comments My back is doing pretty good for the past 3 weeks. A lot less pain and able to do more. But im sore today because i stood a lot and had a intense workout. PT-OP-F Manual Assessment Start: 01/18/21 11:57 Freq: Status: Active Protocol: Document 01/18/21 14:00 HH (Rec: 01/18/21 14:25 [email or web address]) Manual Assessments Soft Tissue Assessment Soft Tissue Mobility Assessment hypertoncity at L lumbar paraspinals (distal at L5-S1 region > proximal) hypertonicity at L SIJ region and gluteal med and zachary tendon. PT-OP-H Neuro Start: 01/18/21 11:57 Freq: Status: Active Protocol: Document 01/18/21 14:00 (Rec: 01/18/21 14:25 [email or web address]) Deep Tendon Reflex & Clonus Assessment Deep Tendon Reflex Bilateral Achilles Deep Tendon Reflex 2+ Normal Bilateral Patellar Deep Tendon Reflex 2+ Normal PT-OP-J Posture/Palpation/Skin Start: 01/18/21 11:57 Freq: Status: Active Protocol: Document 01/18/21 14:00 (Rec: 01/18/21 14:25 [email or web address]) Palpation Assessment Location L parapsinal Palpation Location lumbar parapsinals L, QL Palpation Findings Tenderness,Trigger Point Palpation Details muscle hypertrophy noted on L PT-OP-K Range of Motion Start: 01/18/21 11:57 Freq: Status: Active Protocol: Document 01/18/21 14:00 (Rec: 01/18/21 14:25 [email or web address]) Lumbar Spine Range of Motion Lumbar Spine Active Degrees Comments toe touch= hands on floor, L hip hike with L paraspinals hypertrophy, mild L scoliosis noted. SB to R= 23inches from floor, tightness noted at L lumbar region SB to L = 21 inches from floor , pressure pain on L lumbar region extension= shoulder over heels , pressure pain on lumbar region, angulation noted at L3 level Hip Goniometric Range of Motion Hip Right Active Hip ROM WFL Yes Straight Leg Raise 92 Comments hip ROM = WFL Left Active Hip ROM WFL Yes Testing Position Supine Straight Leg Raise 98 Comments hip ROM = WFL PT-OP-L Special Tests Start: 01/18/21 11:57 Freq: Status: Active Protocol: Document 01/18/21 14:00 (Rec: 01/18/21 14:25 [email or web address]) Special Tests Lumbar Spine Special Tests A-P Shearing Test Results -ve Slump Test Results -ve Straight Leg Raise Test Results -ve Prone Instability Test Test Results +VE B Comments pt reports pain reduced with hip extension PT-OP-M Strength Start: 01/18/21 11:57 Freq: Status: Active Protocol: Document 01/18/21 14:00 HH (Rec: 01/18/21 14:25 [email or web address]) Trunk Strength Trunk Manual Muscle Testing Testing Position Prone Core Stabilization flexion endurance test= >60 seconds Hip Strength Hip Manual Muscle Testing Right Flexion (L2) 5 Normal Extension (S1) 5 Normal Abduction 5 Normal Adduction 5 Normal Left Flexion (L2) 4+ Good+ Extension (S1) 4+ Good+ Abduction 4+ Good+ Adduction 4+ Good+ Knee Strength Knee Manual Muscle Testing Right Flexion (S2) 5 Normal Extension (L3) 5 Normal Left Flexion (S2) 5 Normal Extension (L3) 5 Normal PT-OP-Q Treatments Start: 01/18/21 11:57 Freq: Status: Active Protocol: Document 03/02/21 08:15 HH (Rec: 03/02/21 09:04 [id number]) Therapeutic Exercises Supine Exercises crunch hold Side bilateral Reps/Minutes 20 sec x4 Comments for HEP, no discomfort bridging Supine Exercise Name SL bridge Reps/Minutes 10 x2 Comments good neutral pelvis 1st, then lift with glut/ hip abd fac- good form Prone Exercises hip extension Prone Exercise Name birddog Side bilateral Reps/Minutes 10 x2 Comments for HEP, no discomfort, cues on PPT Standing Exercises runner squat Reps/Minutes 10 x 2 Comments for HEP RDL Equipment Used 10 lbs DB Reps/Minutes 10x 2 Comments for HEP Manual Therapy Treatment Soft Tissue Mobilization QL Body Location L QL Mobilization Type Myofascial Release,Sustained Pressure,Trigger Point Release Intensity/Depth Moderate Body Position Prone Comments increased tonicity noted PT-OP-T Assessment and Plan Start: 01/18/21 11:57 Freq: Status: Active Protocol: Document 03/02/21 08:15 HH (Rec: 03/02/21 09:04 [id number]) Physical Therapy Assessment Goals hep Impairment pt does not have HEP Short Term Goal (STG) pt will be compliant to HEP and able to complete them safely and correctly STG Duration 4 weeks activity tolerance Impairment pt is scared to run d/t back pain Short Term Goal (STG) pt will be able to run 1-3 miles per week without increase in back pain STG Duration 4 weeks Manager Training And Development Goal (LTG) pt will be able to run 3-5 miles per week without back discomfort. LTG Duration 8 weeks Pain Impairment pt reports of pain while standing/ lying in supine/ prone Short Term Goal (STG) pt will have pain no more than 4/10 while standing or in prone position STG Duration 4 weeks Jail Goal (LTG) pt will have pain no more than 2/10 while doing her planks and push ups LTG Duration 8 weeks Assessment Summary Assessment pt reports of improvements with reduced pain and improved stability. She does has increased tonciity at QL level after standing for a long period of time and did a HIIT workout. Progressed her stabilization ex to more WB and SL. She love them very well witohut discomfort. will f/u with her on the phone in one month. expect to be DC Physical Therapy Plan Frequency and Duration Frequency of Treatment 1x/Week Duration of Treatment 8 weeks Plan of Care Start Date 01/18/21 Plan of Care End Date 03/19/21 Therapeutic Interventions Therapeutic Interventions Aquatic Therapy,Balance Training,Gait Training,Home Exercise Program,Joint Mobilizations,Manual Therapy, Neuromuscular Re-education, Patient/Caregiver Education, Self-Care/Home Management,Soft Tissue Mobilization,Taping, Therapeutic Activities, Therapeutic Exercises Modalities Biofeedback,Cold Pack/Ice Massage,Electric Stimulation, Hot Packs,Traction- Mechanical ,Ultrasound Next Visit Focus/Plan Next Note Type Treatment Note Next Visit Plan Assess reponse to new HEP see tx today and assessment for nex tx. POC: check plank extension endurance test ( plank endurance with proper form) sTM on L QL, glute med, glute max
--- NOTE | 2021-04-19 13:32 | PT.OPDS ---
Current Diagnoses Strain of muscle, fascia and tendon of lower back, initial encounter (03/02/21) Visit Care Team Role Provider Type Jose Padilla DO Attending Provider Physician Family Provider Primary Care Provider Referring Provider Specialty: Family Practice Address: [address] [place] [address], [facility] Email: [email or web address] Visit Number Visit Number Discharge Summary PT-OP-T Assessment and Plan Start: 01/18/21 11:57 Freq: Status: Active Protocol: Document 04/19/21 13:31 (Rec: 04/19/21 13:32 [email or web address]) Physical Therapy Plan Discharge Physical Therapy Discharge Reasons Goals Met Discharge Comments per EMR, pt has shown good progress. She no longer needs therapy and DC from PT today.
== END 2021-04-19 14:47 | disposition home or self-care (01) ==
LOC: PHYS 08:15
PROVIDERS: Family Provider Family Medicine; PCP Family Medicine; Referring Provider Family Medicine; Visit Provider Family Medicine
DX: S39.012A Strain of muscle, fascia and tendon of lower back, initial encounter (principal)
CPT/HCPCS: 97110; 97140; 97161

== ENCOUNTER → 2021-10-04 08:32 | Outpatient (CLI) | payer OTHER, SELFPAY ==
--- NOTE | 2021-10-04 | DI.MG.S_ITS ---
BILATERAL DIGITAL SCREENING MAMMOGRAM 3D/2D WITH CAD: 10/04/2021 CLINICAL: Routine screening. Family history of breast cancer. Comparison is made to exams dated: 07/19/2020 mammogram, 03/12/2018 mammogram, and 12/31/2016 mammogram - [facility]. The tissue of both breasts is heterogeneously dense. This may lower the sensitivity of mammography. Current study was also evaluated with a Computer Aided Detection (CAD) system. No significant masses, calcifications, or other findings are seen in either breast. There has been no significant interval change. IMPRESSION: NEGATIVE There is no mammographic evidence of malignancy. A 1 year screening mammogram is recommended. This exam was interpreted at Station ID: [id number]. NOTE: For mammograms, a report in lay terms will be sent to the patient. Approximately 15% of breast malignancies will not be visualized mammographically. In the management of a palpable breast mass, a negative mammogram must not discourage biopsy of a clinically suspicious lesion. Electronically Signed By: Dante dubon/alfredo:10/04/2021 09:02:10 copy to: MARIO ARDON letter sent: Normal Exam ACR BI-RADS Category 1: Negative [id number]
== END ==
PROVIDERS: Family Provider Family Medicine; PCP Family Medicine; Referring Provider Family Medicine; Visit Provider Family Medicine
DX: Z12.31 Encounter for screening mammogram for malignant neoplasm of breast (principal); Z80.3 Family history of malignant neoplasm of breast
CPT/HCPCS: 77063; 77067

== ENCOUNTER → 2021-11-15 09:48 | Outpatient (CLI) | payer OTHER, SELFPAY ==
[2021-11-15 10:25] LABS: Add Manual Diff / Slide Review NO; Basophils Absolute Auto 100 /uL (0-100); Basophils Percent Auto 1.4 % (0-2); Eosinophils Absolute Auto 200 /uL (0-450); Eosinophils Percent Auto 3.9 % (2-4); Hematocrit 37.9 % (36-46); Hemoglobin 13.1 g/dL (12.0-16.0); Lymphocytes Absolute Auto 1600 /uL (1100-4500); Lymphocytes Percent Auto 34.6 % (25-40); Mean Corpuscular HGB Conc 34.7 % (30-36); Mean Corpuscular Hemoglobin 31.8 PG (26-34); Mean Corpuscular Volume 91.9 fL (80-100); Monocytes Absolute Auto 300 /uL (0-900); Monocytes Percent Auto 6.5 % (3-14); Neutrophils Absolute Auto 2500 /uL (1500-7000); Neutrophils Percent Auto 53.6 % (50-75); Platelet Count 212 X10^3/uL (150-400); Red Blood Cell Count 4.12 X10^6/uL (4.0-5.2); Red Cell Distribution Width 13.8 % (11.6-14.8); White Blood Cell Count 4.7 X10^3/uL (4.5-11.0)
[2021-11-15 10:54] LABS: Alanine Aminotransferase 17 IU/L (<35); Albumin 4.8 g/dL (3.5-5.0); Albumin Globulin Ratio 1.8 (1.0-2.8); Alkaline Phosphatase 56 U/L (38-126); Aspartate Aminotransferase 31 IU/L (14-36); BUN Creatinine Ratio 19.2 (6-22); Bilirubin Total 0.6 mg/dL (0.2-1.3); Blood Urea Nitrogen 14 mg/dL (7-17); Calcium 9.2 mg/dL (8.4-10.2); Carbon Dioxide 25 mmol/L (22-32); Chloride 107 mmol/L (98-107); Cholesterol 195 mg/dL (140-199); Estimated Glomerular Filt Rate > 60.0 mL/min (>60); Globulin 2.6 g/dL (1.7-4.1); Glucose 90 mg/dL (70-100); HDL Cholesterol 90 mg/dL (40-60); HEMOLYSIS < 15 (0-50); LDL Cholesterol Calculated 96 mg/dL (<100); Potassium 4.3 mmol/L (3.4-5.1); Sodium 139 mmol/L (137-145); Total Protein 7.4 g/dL (6.3-8.2); Triglycerides 47 mg/dL (35-150)
[2021-11-15 11:24] LABS: TSH w/ Reflex to FT4 3.46 uIU/mL (0.47-4.68)
== END ==
PROVIDERS: Family Provider Family Medicine; PCP Family Medicine; Referring Provider Family Medicine; Visit Provider Family Medicine
DX: Z00.00 Encounter for general adult medical examination without abnormal findings (principal)
CPT/HCPCS: 36415; 80053; 80061; 84443; 85025

== ENCOUNTER → 2022-07-27 08:21 | Outpatient (CLI) | payer OTHER, SELFPAY ==
[2022-07-27 09:10] LABS: Influenza A - CEPHEID Flu A NEGATIVE (NEGATIVE); Influenza B - CEPHEID Flu B NEGATIVE (NEGATIVE); Respiratory Syncytial Virus Negative (Negative)
[2022-07-27 09:31] LABS: COVID-19 CEPHEID 4-PLEX PCR Negative (Negative)
== END ==
PROVIDERS: Physician Assistant; Family Provider Family Medicine; PCP Family Medicine; Visit Provider Family Medicine
DX: J06.9 Acute upper respiratory infection, unspecified (principal); Z20.822 Contact with and (suspected) exposure to COVID-19
CPT/HCPCS: 0241U

== ENCOUNTER → 2023-04-16 08:16 | Outpatient (CLI) | payer OTHER, SELFPAY ==
--- NOTE | 2023-04-16 | DI.MG.S_ITS ---
BILATERAL DIGITAL SCREENING MAMMOGRAM 3D/2D WITH CAD: 04/16/2023 CLINICAL: Routine screening. Family history of breast cancer. Comparison is made to exams dated: 10/04/2021 mammogram, 07/19/2020 mammogram, and 03/12/2018 mammogram - [facility]. Both breasts are heterogeneously dense, which may obscure small masses (category c / 51-75% glandular tissue). Current study was also evaluated with a Computer Aided Detection (CAD) system. There is an oval focal asymmetry with an obscured margin in the right breast at 2 o'clock middle depth. No other significant masses, calcifications, or other findings are seen in either breast. IMPRESSION: INCOMPLETE: NEEDS ADDITIONAL IMAGING EVALUATION The oval focal asymmetry in the right breast is indeterminate. Additional views with possible ultrasound are recommended. Based on the Tyrer Cuzick model (a risk assessment model) the patient's lifetime risk is 14.6% and her 10 year risk is 2.8%. According to the ACR, ACS, and NCCN guidelines, an annual breast MRI exam along with mammogram is recommended if the patient's lifetime risk is 20% or greater. This exam was interpreted at Station ID: [id number]. NOTE: For mammograms, a report in lay terms will be sent to the patient. Approximately 15% of breast malignancies will not be visualized mammographically. In the management of a palpable breast mass, a negative mammogram must not discourage biopsy of a clinically suspicious lesion. Electronically Signed By: Quang Moon M.D. slc/:04/16/2023 13:08:54 copy to: MARIO ARDON letter sent: Additional Imaging Needed ACR BI-RADS Category 0: Incomplete 3340F
== END ==
PROVIDERS: Family Provider Family Medicine; PCP Family Medicine; Referring Provider Family Medicine; Visit Provider Family Medicine
DX: Z12.31 Encounter for screening mammogram for malignant neoplasm of breast (principal); Z80.3 Family history of malignant neoplasm of breast
CPT/HCPCS: 77063; 77067

== ENCOUNTER → 2023-04-24 09:03 | Outpatient (CLI) | payer OTHER, SELFPAY ==
--- NOTE | 2023-04-24 09:04 | DI.RAD.S_ITS ---
PROCEDURE: XR LUMBAR SPINE 2-3V INDICATIONS: acute on chronic lumbar pain particularly left low back area TECHNIQUE: 3 views of the lumbar spine were acquired. COMPARISON: [facility], , XR LUMBAR SPINE 2-3V, 03/29/2019, 10:09. FINDINGS: Bones: 5 [id number] vertebrae are present. There is normal bony alignment. No vertebral body compression fractures. No suspicious bony lesions. Facet arthropathy at L4-L5 and L5-S1 is again seen. Soft tissues: Overlying bowel gas pattern is normal. No suspicious soft tissue calcifications. IMPRESSION: Redemonstration of mild to moderate facet arthropathy at L4-5 L5-S1. Dictated by: Aaron Monroe M.D. on 04/24/2023 at 10:34 Approved by: Aaron Monroe M.D. on 04/24/2023 at 10:40
== END ==
PROVIDERS: Family Provider Family Medicine; PCP Family Medicine; Referring Provider Physician Assistant; Visit Provider Physician Assistant
DX: M47.816 Spondylosis without myelopathy or radiculopathy, lumbar region (principal); M47.817 Spondylosis without myelopathy or radiculopathy, lumbosacral region; M54.50 Low back pain, unspecified; G89.29 Other chronic pain
CPT/HCPCS: 72100

== ENCOUNTER → 2023-04-29 08:53 | Outpatient (CLI) | payer OTHER, SELFPAY ==
--- NOTE | 2023-04-29 08:53 | DI.MG.S_ITS ---
UNILATERAL RIGHT DIGITAL DIAGNOSTIC MAMMOGRAM 3D/2D WITH ADDITIONAL VIEWS: 04/29/2023 CLINICAL: Additional evaluation requested from prior study. Comparison is made to exams dated: 04/16/2023 mammogram, 10/04/2021 mammogram, and 07/19/2020 mammogram - [facility]. The right breast is heterogeneously dense, which may obscure small masses (category c / 51-75% glandular tissue). There is a 0.4 cm oval focal asymmetry with an obscured margin in the right breast at 3 o'clock middle depth. This is seen in additional views. This is less prominent and decreased in size. No other significant masses or calcifications are seen in the breast. IMPRESSION: INCOMPLETE: NEEDS ADDITIONAL IMAGING EVALUATION The 0.4 cm oval focal asymmetry in the right breast resembles a cyst, clustered cysts, or a lymph node and is indeterminate. An ultrasound is recommended for further evaluation and is scheduled to immediately follow this examination. Based on the Tyrer Cuzick model (a risk assessment model) the patient's lifetime risk is 14.6% and her 10 year risk is 2.8%. According to the ACR, ACS, and NCCN guidelines, an annual breast MRI exam along with mammogram is recommended if the patient's lifetime risk is 20% or greater. This exam was interpreted at Station ID: [id number]. NOTE: For mammograms, a report in lay terms will be sent to the patient. Approximately 15% of breast malignancies will not be visualized mammographically. In the management of a palpable breast mass, a negative mammogram must not discourage biopsy of a clinically suspicious lesion. Electronically Signed By: Todd Hopson M.D. at/:04/29/2023 09:44:17 copy to: MARIO ARDON ACR BI-RADS Category 0: Incomplete [id number]
--- NOTE | 2023-04-29 08:53 | DI.US.S_ITS ---
ULTRASOUND OF RIGHT BREAST: 04/29/2023 CLINICAL: Patient returns today to evaluate a focal asymmetry in the right breast. Comparison is made to exams dated: 04/29/2023 mammogram, 04/16/2023 mammogram, 10/04/2021 mammogram, and 07/19/2020 mammogram - [facility]. Color flow and real-time ultrasound of the right breast were performed. Mclean scale images of the real-time examination were reviewed. There is a 0.7 cm x 0.3 cm x 0.6 cm oval cyst with thin smooth internal atkinson in the right breast at 3 o'clock middle depth 4 cm from the nipple. This oval cyst is hypoechoic with internal echoes. This correlates with mammography findings. Color flow imaging demonstrates that there is no vascularity present. IMPRESSION: PROBABLY BENIGN The 0.7 cm x 0.3 cm x 0.6 cm oval cyst in the right breast is consistent with a complicated cyst and is probably benign. A follow-up right mammogram and an ultrasound in 6 months is recommended to demonstrate stability. Findings and recommendations were conveyed to the patient during today's evaluation. This exam was interpreted at Station ID: [id number]. Electronically Signed By: Todd Hopson M.D. aty/:04/29/2023 09:46:50 copy to: MARIO ARDON letter sent: Followup Recommended Ultrasound BI-RADS: 3 Probably benign
== END ==
PROVIDERS: Family Provider Family Medicine; PCP Family Medicine; Referring Provider Family Medicine; Visit Provider Family Medicine
DX: R92.8 Other abnormal and inconclusive findings on diagnostic imaging of breast (principal); N60.01 Solitary cyst of right breast
CPT/HCPCS: 76642; 77065; G0279

== ENCOUNTER → 2023-12-26 12:07 | Outpatient (CLI) | payer OTHER, SELFPAY ==
--- NOTE | 2023-12-26 12:08 | DI.MG.S_ITS ---
UNILATERAL RIGHT DIGITAL DIAGNOSTIC MAMMOGRAM 3D/2D: 12/26/2023 CLINICAL: Patient returns for a 6 month follow up of the right breast. Comparison is made to exams dated: 04/29/2023 mammogram, 04/16/2023 mammogram, 10/04/2021 mammogram, and 07/19/2020 mammogram - [facility]. The right breast is heterogeneously dense, which may obscure small masses (category c / 51-75% glandular tissue). There is a stable oval focal asymmetry with an obscured margin in the right breast at 3 o'clock middle depth. This is seen in additional views. No other significant masses or calcifications are seen in the breast. IMPRESSION: INCOMPLETE: NEEDS ADDITIONAL IMAGING EVALUATION The stable oval focal asymmetry in the right breast is indeterminate. An ultrasound is recommended. Based on the Tyrer Cuzick model (a risk assessment model) the patient's lifetime risk is 14.7% and her 10 year risk is 3.0%. According to the ACR, ACS, and NCCN guidelines, an annual breast MRI exam along with mammogram is recommended if the patient's lifetime risk is 20% or greater. This exam was interpreted at Station ID: [id number]. NOTE: For mammograms, a report in lay terms will be sent to the patient. Approximately 15% of breast malignancies will not be visualized mammographically. In the management of a palpable breast mass, a negative mammogram must not discourage biopsy of a clinically suspicious lesion. Electronically Signed By: Ignacio Trevino M.D. lc/:12/26/2023 13:13:41 copy to: MARIO ARDON ACR BI-RADS Category 0: Incomplete [id number]
--- NOTE | 2023-12-26 12:08 | DI.US.S_ITS ---
LIMITED ULTRASOUND OF RIGHT BREAST: 12/26/2023 CLINICAL: 6mo f/u rt breast 03:00 4cmfn. Comparison is made to exams dated: 12/26/2023 mammogram, 04/29/2023 ultrasound, 04/29/2023 mammogram, 04/16/2023 mammogram, 10/04/2021 mammogram, and 07/19/2020 mammogram - [facility]. Color flow and real-time ultrasound of the right breast 3 o'clock region were performed. Mclean scale images of the real-time examination were reviewed. There is a possible stable 0.6 cm x 0.4 cm x 0.4 cm complicated cyst in the right breast at 3 o'clock middle depth 4 cm from the nipple. This correlates with mammography findings. IMPRESSION: PROBABLY BENIGN The possible stable 0.6 cm x 0.4 cm x 0.4 cm complicated cyst in the right breast is probably benign. A follow-up mammogram and an ultrasound in 6 months is recommended to demonstrate stability. This exam was interpreted at Station ID: [id number]. Electronically Signed By: Ignacio Trevino M.D. lc/:12/26/2023 13:15:12 copy to: MARIO ARDON letter sent: Followup Recommended Ultrasound BI-RADS: 3 Probably benign
== END ==
PROVIDERS: Family Provider Family Medicine; PCP Family Medicine; Referring Provider Family Medicine; Visit Provider Family Medicine
DX: R92.8 Other abnormal and inconclusive findings on diagnostic imaging of breast (principal); N64.89 Other specified disorders of breast
CPT/HCPCS: 76642; 77065; G0279

== ENCOUNTER → 2024-04-30 07:49 | Outpatient (CLI) | payer OTHER, SELFPAY ==
--- NOTE | 2024-04-30 07:50 | DI.CT.S_ITS ---
PROCEDURE: CT SINUS SCREEN WO CON INDICATIONS: sinus pressure; headache; ears congested trouble hearing TECHNIQUE: Noncontrast 3.0 mm axial images acquired from the frontal sinuses to the mid-sella, with coronal and sagittal reformats. For radiation dose reduction, the following was used: automated exposure control, adjustment of mA and/or kV according to patient size. COMPARISON: None. FINDINGS: Image quality: Excellent. Sinuses: Overall mild scattered areas of mucosal thickening most prominent in the ethmoid air cells. No fluid levels. Ostiomeatal Complexes: Ostiomeatal complexes are narrowed bilaterally with mucosal thickening. Miscellaneous: Visualized intra-orbital contents are normal. No rita bullosa or paradoxical turbinate curvature. Rightward nasal septal deviation. IMPRESSION: Scattered mucosal thickening most prominent in the ethmoid air cells. No fluid levels. There is narrowing with mucosal thickening of the ostiomeatal complexes bilaterally. Dictated by: Sarika Plascencia M.D. on 04/30/2024 at 11:40 Approved by: Sraika Plascencia M.D. on 04/30/2024 at 11:44
== END ==
LOC: CT 07:50
PROVIDERS: Family Provider Family Medicine; PCP Family Medicine; Referring Provider Physician Assistant; Visit Provider Physician Assistant
DX: J34.89 Other specified disorders of nose and nasal sinuses (principal); H93.8X9 Other specified disorders of ear, unspecified ear; H91.93 Unspecified hearing loss, bilateral
CPT/HCPCS: 70486

== ENCOUNTER → 2024-09-23 09:23 | Outpatient (CLI) | payer OTHER, SELFPAY ==
[2024-09-23 09:57] LABS: Add Manual Diff / Slide Review NO; Basophils Absolute Auto 0 /uL (0-100); Basophils Percent Auto 0.7 % (0-2); Eosinophils Absolute Auto 300 /uL (0-450); Eosinophils Percent Auto 5.8 % (2-4); Hematocrit 38.9 % (36-46); Hemoglobin 13.1 g/dL (12.0-16.0); Lymphocytes Absolute Auto 1700 /uL (1100-4500); Lymphocytes Percent Auto 36.8 % (25-40); Mean Corpuscular HGB Conc 33.5 % (30-36); Mean Corpuscular Hemoglobin 31.8 PG (26-34); Mean Corpuscular Volume 94.9 fL (80-100); Monocytes Absolute Auto 300 /uL (0-900); Monocytes Percent Auto 6.4 % (3-14); Neutrophils Absolute Auto 2300 /uL (1500-7000); Neutrophils Percent Auto 50.3 % (50-75); Platelet Count 239 X10^3/uL (150-400); Red Cell Distribution Width 13.7 % (11.6-14.8); White Blood Cell Count 4.6 X10^3/uL (4.5-11.0)
[2024-09-23 10:21] LABS: Alanine Aminotransferase 20 IU/L (<35); Albumin 4.5 g/dL (3.5-5.0); Albumin Globulin Ratio 1.8 (1.0-2.8); Alkaline Phosphatase 59 U/L (38-126); Aspartate Aminotransferase 33 IU/L (14-36); Bilirubin Total 0.4 mg/dL (0.2-1.3); Blood Urea Nitrogen 16 mg/dL (7-17); Calcium 9.2 mg/dL (8.4-10.2); Carbon Dioxide 26 mmol/L (22-32); Chloride 105 mmol/L (98-107); Cholesterol 214 mg/dL (140-199); Estimated Glomerular Filt Rate > 60 mL/min (>60); Globulin 2.5 g/dL (1.7-4.1); Glucose 90 mg/dL (70-100); HDL Cholesterol 82 mg/dL (40-60); HEMOLYSIS < 15 (0-50); LDL Cholesterol Calculated 120 mg/dL (<100); Potassium 4.1 mmol/L (3.4-5.1); Sodium 137 mmol/L (137-145); Triglycerides 58 mg/dL (35-150)
[2024-09-23 10:46] LABS: TSH w/ Reflex to FT4 3.61 uIU/mL (0.47-4.68)
== END ==
PROVIDERS: Family Provider Family Medicine; PCP Family Medicine; Referring Provider Family Medicine; Visit Provider Family Medicine
DX: Z00.00 Encounter for general adult medical examination without abnormal findings (principal); D35.2 Benign neoplasm of pituitary gland
CPT/HCPCS: 36415; 80053; 80061; 84443; 85025

== ENCOUNTER → 2024-10-08 13:30 | Outpatient (CLI) | payer OTHER, SELFPAY ==
--- NOTE | 2024-10-08 13:31 | DI.US.S_ITS ---
LIMITED ULTRASOUND OF RIGHT BREAST AND AXILLA: 10/08/2024 CLINICAL: Patient returns for a 6 month follow up of the right breast. Comparison is made to exams dated: 10/08/2024 mammogram, 12/26/2023 ultrasound, 12/26/2023 mammogram, 04/29/2023 ultrasound, 04/29/2023 mammogram, and 04/16/2023 mammogram - [facility]. Color flow and real-time ultrasound of the right breast 3 o'clock, and axilla regions were performed. Mclean scale images of the real-time examination were reviewed. There is a 0.6 x 0.4 x 0.5 cm oval hypoechoic mass with circumscribed margins at 3 o'clock, 4 cm from the nipple, stable since 04/29/2023. This finding corresponds to the mammographic finding. IMPRESSION: PROBABLY BENIGN Right breast 0.6 cm oval mass at 3 o'clock position, stable since April 2023. Finding is likely a complicated cyst and is probably benign. Recommend follow-up mammogram and ultrasound in 12 months to demonstrate over 2 year stability. Patient will be due for bilateral mammogram at that time. Findings and recommendations were conveyed to the patient during today's evaluation. This exam was interpreted at Station ID: [id number]. Electronically Signed By: Barbi Aguillon M.D., Ph.D. eb/:10/08/2024 14:50:22 copy to: MARIO ARDON letter sent: Followup Recommended ACR BI-RADS Category 3: Probably Benign
--- NOTE | 2024-10-08 13:31 | DI.MG.S_ITS ---
BILATERAL DIGITAL DIAGNOSTIC MAMMOGRAM 3D/2D: 10/08/2024 CLINICAL: Short term follow up of the right breast, due for bilateral imaging. Comparison is made to exams dated: 12/26/2023 mammogram, 04/29/2023 mammogram, 04/16/2023 mammogram, 10/04/2021 mammogram, and 07/19/2020 mammogram - [facility]. The breasts are heterogeneously dense, which may obscure small masses (category c / 51-75% glandular tissue). There is a stable oval focal asymmetry in the right breast at 3 o'clock middle depth. This is not significantly changed 04/29/2023. No other significant masses, calcifications, or other findings are seen in either breast. IMPRESSION: INCOMPLETE: NEED ADDITIONAL IMAGING EVALUATION The stable oval focal asymmetry in the right breast is indeterminate. An ultrasound is recommended for further evaluation and is scheduled to immediately follow this examination. Based on the Tyrer Cuzick model (a risk assessment model) the patient's lifetime risk is 14.7% and her 10 year risk is 3.0%. According to the ACR, ACS, and NCCN guidelines, an annual breast MRI exam along with mammogram is recommended if the patient's lifetime risk is 20% or greater. This exam was interpreted at Station ID: [id number]. NOTE: For mammograms, a report in lay terms will be sent to the patient. Approximately 15% of breast malignancies will not be visualized mammographically. In the management of a palpable breast mass, a negative mammogram must not discourage biopsy of a clinically suspicious lesion. Electronically Signed By: Barbi Aguillon M.D., Ph.D. eb/:10/08/2024 14:03:19 copy to: MRAIO ARDON letter sent: Additional Imaging Needed ACR BI-RADS Category 0: Incomplete: Need Additional Imaging Evaluation
== END ==
LOC: MAMMO 13:30
PROVIDERS: Family Provider Family Medicine; PCP Family Medicine; Referring Provider Family Medicine; Visit Provider Family Medicine
DX: R92.8 Other abnormal and inconclusive findings on diagnostic imaging of breast (principal); R92.333 Mammographic heterogeneous density, bilateral breasts; N63.15 Unspecified lump in the right breast, overlapping quadrants
CPT/HCPCS: 76642; 77066; G0279